=== PATIENT | male | born 1935 | race Caucasian/White ===

== ENCOUNTER → 2019-05-31 14:48 | Outpatient (CLI) | payer MEDICARE, OTHER, SELFPAY ==
--- NOTE | 2019-05-31 | DI.US.S_ITS ---
PROCEDURE: US RENAL COMPLETE INDICATIONS: CHRONIC KIDNEY DISEASE, STAGE 3 (MODERATE) TECHNIQUE: Real-time scanning was performed of the kidneys and bladder, with image documentation. COMPARISON: None. FINDINGS: Kidneys: Kidneys are normal in size. Right kidney measures 9.1 cm long; left kidney measures 8.6 cm long. Right renal cortical thickness is 1.2 cm; left renal cortical thickness is 1.3 cm. Renal cortical echotexture is normal. No hydronephrosis or nephrolithiasis. No suspicious solid mass lesions. Bladder: Pre-void bladder volume is 124 mL. Post-void residual is 23 mL. Pre-void images demonstrate no intraluminal masses or stones. On pre-void images, bilateral ureteral jets are noted with color Doppler interrogation. (Of note, ureteral jets may not be detectable in up to 25% of cases due to insufficient differences in specific gravity between ureteral and bladder urine). Prostate volume estimated at 54 cc. Miscellaneous: No free pelvic fluid. IMPRESSION: Normal sonographic appearance of the kidneys bilaterally. Dictated by: Hayden TEJADA Interpreted: Susi Ruvalcaba MD on 05/31/2019 at 16:46 Approved by: Susi Ruvalcaba M.D. on 06/01/2019 at 7:08
== END ==
PROVIDERS: Family Provider Physician Assistant Medical; PCP Physician Assistant Medical; Visit Provider Internal Medicine Nephrology
DX: N18.3 Chronic kidney disease, stage 3 (moderate) (principal)
CPT/HCPCS: 76770

== ENCOUNTER 2020-04-26 00:03 | Emergency (ER) | payer OTHER, MEDICARE, SELFPAY ==
--- NOTE | 2020-04-26 00:11 | ED_ITS ---
HPI - Abdominal Pain General Chief Complaint: Abdominal Pain Stated Complaint: constipated 3days Time Seen by Provider: 04/26/20 00:05 Source: patient Mode of arrival: Ambulatory Limitations: no limitations History of Present Illness HPI narrative: 84M former smoker presents with his and the chief complaint of lower abdominal discomfort and decreased BM for the past few days. His pain comes and goes without any provocation or palliation. He denies any fever chills nor nausea or vomiting. He denies any change in medications or diet. Is no difficulty with urination such as dysuria, frequency or urgency. MD complaint: abdominal pain Onset (ago): day(s) Pain Consistency: intermittent Location: diffuse Severity: moderate Quality: cramping Radiation: none Relieving factors: nothing Exacerbating factors: nothing Associated symptoms: denies other symptoms Related Data Previous Rx's Medication Instructions Recorded tamsulosin [Flomax] 0.4 mg PO DAILY #10 cap 04/26/20 Review of Systems Constitutional Constitutional: Denies chills, Denies fatigue, Denies fever(s), Denies frequent falls, Denies lethargy and Denies weakness Eyes Eyes: Denies change in vision, Denies eye discharge, Denies irritation and Denies loss of vision ENT Ears, Nose, Mouth, and Throat: Denies change in voice, Denies dizziness, Denies neck pain, Denies sore throat and Denies throat swelling Cardiovascular Cardiovascular: Denies chest pain, Denies irregular heart rhythm, Denies lightheadedness, Denies palpitations, Denies dyspnea, Denies dyspnea on exertion and Denies orthopnea Respiratory Respiratory: Denies cough, Denies dyspnea, Denies dyspnea on exertion and Denies wheezing Gastrointestinal Gastrointestinal: Reports abdominal pain, Denies change in bowel habits, Reports constipation, Denies diarrhea, Denies nausea and Denies vomiting Musculoskeletal Musculoskeletal: Denies neck pain and Denies numbness Integumentary/Breasts Skin/Breast: Denies pruritus, Denies erythema, Denies rash and Denies wounds Neurologic Neurologic: Denies behavioral changes, Denies confusion, Denies dizziness, Denies frequent falls, Denies loss of vision, Denies numbness and Denies weakness Psychiatric Psychiatric: Denies anxiety, Denies behavioral changes, Denies confusion, Denies depression, Denies homicidal ideation and Denies suicidal ideation Endocrine Endocrine: Denies fatigue, Denies flushing and Denies palpitations Hematologic/Lymphatic Hematologic/Lymphatic: Denies easy bruising Allergic/Immunologic Allergic/Immunologic: Denies urticaria, Denies throat swelling and Denies wheezing Exam Narrative Exam Narrative: GENERAL: [84] year old patient appears stated age. Well- nourished, well-developed patient, in mild distress. HEAD: Atraumatic. Normocephalic. EYES: Pupils equal round and reactive. Extraocular motions intact. No scleral icterus. No injection or drainage. ENT: Nose without bleeding, purulent drainage. Throat without erythema, tonsillar hypertrophy or exudate. Airway patent. NECK: Trachea midline. Non tender CARDIOVASCULAR: Regular rate and rhythm without murmurs, gallops, or rubs. RESPIRATORY: Clear to auscultation. Breath sounds equal bilaterally. No wheezes, rales, or rhonchi. GASTROINTESTINAL: Abdomen soft, non-tender, nondistended. EXTREMITIES: No edema or joint tenderness. BACK: Nontender without deformity or crepitance. No flank tenderness. NEURO: AOx3. SKIN: No rash or erythema of visible areas Initial Vital Signs Initial Vital Signs: Vital Signs Temperature 97.9 F 04/26/20 00:17 Pulse Rate 67 04/26/20 00:17 Respiratory Rate 18 04/26/20 00:17 Blood Pressure 165/76 H 04/26/20 00:17 Pulse Oximetry 98 04/26/20 00:17 Course Course Course Narrative: Patient urinating without difficulty but on multiple occasions has a measured postvoid residual of between 2 and 300 cc. Without any intervention the patient's initial presenting abdominal discomfort had completely resolved. He ambulates to the department without any difficulty. I did consult with Urology regarding their threshold for Santillan catheter in the setting of mild urinary retention. Dr. Lopez recommends initiating tamsulosin. Orders Ordered: ED Orders 04/26/20 00:14 XR acute abdomen series Stat Vital Signs Vital signs: Vital Signs - 8 hr 04/26/20 00:17 04/26/20 01:39 04/26/20 03:05 Temperature 97.9 F Pulse Rate 67 61 Respiratory Rate 18 22 21 Blood Pressure 165/76 H 167/72 H 161/76 H Pulse Oximetry 98 97 96 MDM - Abdominal Pain Lab Data Point of care testing: Urine Dip Bedside Urine Glucose Negative Bedside Urine Bilirubin - Negative Bedside Urine Ketone - Negative Urine Specific [place] 1.02 Bedside Urine Occult Blood - Negative Bedside Urine pH 6.0 Bedside Urine Protein - Negative Bedside Urine Urobilinogen - Negative Bedside Urine Nitrite - Negative Bedside Urine Leukocytes - Negative Esterase Discharge Plan Departure Patient Disposition: Home Clinical Impression: Constipation Qualifiers: Constipation type: unspecified constipation type Qualified Code(s): K59.00 - Constipation, unspecified Discharge Date/Time: 04/26/20 03:45 Instructions: DI for Constipation, DI for Urinary Retention in Men Activity Restrictions/Additional Instructions: *You have been diagnosed with [ abdominal pain due to constipation and mild urinary retention] *What to do: *Take over the counter medications as directed: 1. Metamucil - is a bulk forming laxative and adds fiber 2. Colace - softens your stool 3. Dulcolax suppository - stimulates your bowels *Follow up with your primary care provider in 2-3 days, call for appointment *Return to ER if you should have any new, worsening or concerning symptoms *Drink plenty of water and eat foods high in fiber *Stay as active as you can as this helps move your bowels as well Prescriptions: New tamsulosin [Flomax] 0.4 mg capsule 0.4 mg PO DAILY Qty: 10 RF: 0 Referrals: Bahman Lopez MD [Physician] - Emilie Bo PA-C [Primary Care Provider] -
--- NOTE | 2020-04-26 00:14 | DI.RAD.S_ITS ---
PROCEDURE: XR ACUTE ABDOMEN SERIES INDICATIONS: Abdominal pain, No Bowel movement TECHNIQUE: One view chest and two views of the abdomen were acquired. COMPARISON: None. FINDINGS: Surgical changes and devices: None. Chest: Lungs are clear. Heart size is normal. No pleural effusions. No pneumoperitoneum. Abdomen: Bowel gas pattern is nonobstructive. No suspicious calcifications. Visualized solid organ contours appear normal. Moderate fecal material seen throughout the colon. Bones: No suspicious bony lesions. IMPRESSION: Chest and abdomen without acute radiographic abnormalities. Moderate amount of fecal material seen throughout the colon possibly representing constipation. No significant discrepancy with the textiles sales representative radiology preliminary report. Dictated by: Navneet Landin M.D. on 04/26/2020 at 7:02 Approved by: Navneet Landin M.D. on 04/26/2020 at 7:03
[2020-04-26 00:17] VITALS: BP 165/76; PULSE 67; RESP 18; TEMP 36.6; O2SAT 98
[2020-04-26 01:39] VITALS: BP 167/72; RESP 22; O2SAT 97
[2020-04-26 03:05] VITALS: BP 161/76; PULSE 61; RESP 21; O2SAT 96
--- NOTE | 2020-04-26 04:13 | PC.NURSE ---
He denied any abdominal pain or nausea at 0100.
== END 2020-04-26 03:45 | disposition home or self-care (01) ==
PROVIDERS: Emergency Provider Emergency Medicine; Family Provider Physician Assistant Medical; PCP Physician Assistant Medical
DX: K59.00 Constipation, unspecified (principal); R10.30 Lower abdominal pain, unspecified
CPT/HCPCS: 51798; 74022; 81003; 99282; 99283

== ENCOUNTER 2021-01-06 18:33 | Emergency (ER) | payer OTHER, MEDICARE, SELFPAY ==
[2021-01-06] VITALS (12 sets, daily range): BP systolic 102–150; BP diastolic 54–95; PULSE 63–71; RESP 16–22; TEMP 37.3; O2SAT 95–98; BMI 25.8
--- NOTE | 2021-01-06 19:23 | DI.RAD.S_ITS ---
PROCEDURE: XR CHEST 1V INDICATIONS: chest pain TECHNIQUE: One view of the chest was acquired. COMPARISON: [facility], CR, XR ACUTE ABDOMEN SERIES, 04/26/2020, 0:46. FINDINGS: Surgical changes and devices: None. Lungs and pleura: Lungs are clear. No pleural effusions or pneumothorax. Mediastinum: Mediastinal contours appear normal. Heart size is normal. Bones and chest wall: No suspicious bony lesions. Overlying soft tissues appear unremarkable. IMPRESSION: 1. No acute cardiopulmonary disease. Dictated by: New Lares M.D. on 01/06/2021 at 20:14 Approved by: New Lares M.D. on 01/06/2021 at 20:15
[2021-01-06 19:49] LABS: INR 1.2 (0.9-1.3); Prothrombin Time 13.1 SECONDS (10.1-12.7)
[2021-01-06 19:52] LABS: Add Manual Diff / Slide Review NO; Basophils Absolute Auto 0 /uL (0-100); Basophils Percent Auto 0.2 % (0-2); Eosinophils Absolute Auto 200 /uL (0-450); Eosinophils Percent Auto 1.4 % (2-4); Hematocrit 34.1 % (41-53); Hemoglobin 11.2 g/dL (13.5-17.5); Lymphocytes Absolute Auto 2900 /uL (1100-4500); Lymphocytes Percent Auto 25.1 % (25-40); Mean Corpuscular HGB Conc 32.8 % (30-36); Mean Corpuscular Hemoglobin 28.9 PG (26-34); Mean Corpuscular Volume 88.1 fL (80-100); Monocytes Absolute Auto 900 /uL (0-900); Monocytes Percent Auto 7.7 % (3-14); Neutrophils Absolute Auto 7500 /uL (1500-7000); Neutrophils Percent Auto 65.6 % (50-75); PTT Partial Thromboplastin Tim 32 SECONDS (26.4-36.2); Platelet Count 189 X10^3/uL (150-400); Red Blood Cell Count 3.87 X10^6/uL (4.5-5.9); Red Cell Distribution Width 13.9 % (11.6-14.8); White Blood Cell Count 11.5 X10^3/uL (4.5-11.0)
[2021-01-06 19:54] LABS: Alanine Aminotransferase 5 IU/L (<50); Albumin 3.9 g/dL (3.5-5.0); Albumin Globulin Ratio 1.3 (1.0-2.8); Alkaline Phosphatase 58 U/L (38-126); Aspartate Aminotransferase 10 IU/L (17-59); BUN Creatinine Ratio 29.6 (6-22); Bilirubin Total 0.5 mg/dL (0.2-1.3); Blood Urea Nitrogen 50 mg/dL (9-20); Calcium 9.9 mg/dL (8.4-10.2); Carbon Dioxide 22 mmol/L (22-32); Chloride 106 mmol/L (98-107); Creatine Kinase 32 U/L (55-170); Estimated Glomerular Filt Rate 38.7 mL/min (>60); Glucose 120 mg/dL (80-110); HEMOLYSIS < 15 (0-50); Lipase 92 U/L (23-300); Magnesium 1.5 mg/dL (1.6-2.3); Sodium 137 mmol/L (137-145); Total Protein 6.9 g/dL (6.3-8.2)
[2021-01-06 19:57] LABS: Potassium 5.5 mmol/L (3.4-5.1)
[2021-01-06 20:05] LABS: Troponin I < 0.012 ng/mL (0.01-0.034)
[2021-01-06] MEDS: SODIUM CHLORIDE 0.9% 1,000 ML 1000 ML IV (22:40)
[2021-01-06 22:49] LABS: Bacteria Urine None Seen; RBC Urine None Seen (0-5/HPF)
[2021-01-06 22:51] LABS: Appearance Urine UA CLEAR; Bilirubin Urine UA NEGATIVE (NEGATIVE); Color Urine UA YELLOW; Glucose Urine UA NEGATIVE (Negative); Ketones Urine UA NEGATIVE (NEGATIVE); Leukocyte Esterase Urine UA NEGATIVE (NEGATIVE); Nitrite Urine UA NEGATIVE (Negative); Occult Blood Urine UA NEGATIVE (Negative); Protein Urine UA NEGATIVE (Negative); Specific Gravity Urine UA 1.015 (1.000-1.035); Urobilinogen Urine UA 0.2 E.U./dL (0.2)
--- NOTE | 2021-01-06 22:59 | ED.WEAKNESS ---
HPI - Weakness General Chief complaint: Weakness Stated complaint: states BP is tanking Time Seen by Provider: 01/06/21 20:21 Source: patient Mode of arrival: Ambulatory Limitations: no limitations History of Present Illness HPI Narrative: This is an 85-year-old male comes emergency department for concern for low blood pressure. Patient has had multiple falls over the last week. Patient's 1st fall was on the 16. He states he probably got up from the table to quickly lost his balance. Was week a couple days later as well and had a 2nd fall. Patient's states she did not seem like he looked well this evening sitting in his chair she checked his blood pressure was 80 systolic, she gave him some food and some water and recheck in our later continued to be in 80s and continued to be low over the next several hours. Patient family ultimately came. He has felt weak, tired for the past 7-10 days. No headaches. He has had a stiff neck for about 6 months and had intermittent neck discomfort in the bleeding has arthritis. No chest pain, no shortness of breath, no nausea or vomiting. No abdominal pain. Patient had a large bowel movement yesterday with diarrhea for about 6 hours. He has had some chronic urinary frequency for about 2 months. He is on a daily water pill. He has not had any new swelling. He takes an aspirin daily, he has diabetes, Parkinson's and chronic kidney disease they do not know his regular creatinine. No prior surgeries. No allergies. No tobacco, rare alcohol, no illicit. He normally uses a walker and his primary care is Dr. Bo and [facility]. Related Data Previous Rx's Medication Instructions Recorded tamsulosin 0.4 mg capsule (Flomax) 0.4 mg PO DAILY #10 cap 04/26/20 Allergies Allergy/AdvReac Type Severity Reaction Status Date / Time No Known Drug Allergies Allergy Verified 01/06/21 18:45 Review of Systems Review of Systems ROS Unobtainable: All systems reviewed & are unremarkable except as noted in HPI and below Patient History Social History Smoking Status: Never smoker Smoking Status: Never smoker alcohol intake frequency: holidays/special occasions only Substance Use Type: does not use Exam Narrative Exam Narrative: GEN: well nourished, well appearing male, alert and oriented x 3, patient appears to be in mild distress. HEENT: Atraumatic, pupils are equal round reactive to light, extraocular movements are intact, nares are clear. Throat is clear without any exudates, erythema, tonsillar enlargement or uvular deviation, neck is nontender. Patient has full range of motion. HEART: Regular rate and rhythm without murmur, clicks, rubs. Pulses are equal in upper and lower extremities LUNGS:Lungs clear to auscultation, no wheezes, rales, crackles, chest moves symmetrically ABD:bowel sounds normal, soft, non-tender, no guarding, rebound, rigidity, no masses noted, no hepatosplenomegaly :No CVA tenderness MSCL: Non-tender, no muscle atrophy, muscles strength 5/5 upper and lower extremities, full range of motion NEURO:CN 2-12 intact, sensation normal Initial Vital Signs Initial Vital Signs: Vital Signs Temperature 99.1 F 01/06/21 18:39 Pulse Rate 69 01/06/21 18:39 Respiratory Rate 18 01/06/21 18:39 Blood Pressure 102/54 L 01/06/21 18:39 Pulse Oximetry 97 01/06/21 18:39 Course Orders Ordered: Discontinued Medications Acetaminophen (Acetaminophen 325 Mg Tablet) 650 mg PO NOW ONE Stop: 01/06/21 23:16 Last Admin: 01/06/21 23:24 Dose: 650 mg Documented by: NEIL Sodium Chloride (Normal Saline 0.9%) 1,000 mls @ 1,000 mls/hr IV BOLUS ONE Stop: 01/06/21 23:35 Last Infusion: 01/07/21 00:34 Dose: 0 mls/hr Documented by: Admin: 01/06/21 22:40 Dose: 1,000 mls/hr Documented by: NEIL Vital Signs Vital signs: Vital Signs - 8 hr 01/06/21 18:39 01/06/21 19:55 01/06/21 20:23 Temperature 99.1 F Pulse Rate 69 67 Respiratory Rate 18 16 Blood Pressure 102/54 L Blood Pressure [Orthostatic Lying] 150/66 H Blood Pressure [Orthostatic Sitting] 142/60 H Blood Pressure [Orthostatic Standing] 125/56 L Pulse Oximetry 97 97 01/06/21 20:30 Temperature Pulse Rate 65 Respiratory Rate 18 Blood Pressure Blood Pressure [Orthostatic Lying] Blood Pressure [Orthostatic Sitting] Blood Pressure [Orthostatic Standing] Pulse Oximetry 97 MDM - Weakness Lab Data Result diagrams: 01/06/21 19:20 01/07/21 00:20 Labs: Lab Results 01/06/21 01/06/21 01/06/21 Range/Units 19:20 19:20 19:20 WBC 11.5 H (4.5-11.0) X10^3/uL RBC 3.87 L (4.5-5.9) X10^6/uL Hgb 11.2 L (13.5-17.5) g/dL Hct 34.1 L (41-53) % MCV 88.1 (80-100) fL MCH 28.9 (26-34) PG MCHC 32.8 (30-36) % RDW 13.9 (11.6-14.8) % Plt Count 189 (150-400) X10^3/uL Neut % (Auto) 65.6 (50-75) % Lymph % (Auto) 25.1 (25-40) % Dickenson % (Auto) 7.7 (3-14) % Eos % (Auto) 1.4 L (2-4) % Baso % (Auto) 0.2 (0-2) % Neut # (Auto) 7500 H (8514-9989) /uL Lymph # (Auto) 2900 (7169-5293) /uL Dickenson # (Auto) 900 (0-900) /uL Eos # (Auto) 200 (0-450) /uL Baso # (Auto) 0 (0-100) /uL PT 13.1 H (10.1-12.7) SECONDS INR 1.2 (0.9-1.3) APTT 32 (26.4-36.2) SECONDS Sodium 137 (137-145) mmol/L Potassium 5.5 H (3.4-5.1) mmol/L Chloride 106 (98-107) mmol/L Carbon Dioxide 22 (22-32) mmol/L BUN 50 H (9-20) mg/dL Creatinine 1.69 H (0.66-1.25) mg/dL Estimated GFR 38.7 L (>60) mL/min BUN/Creatinine Ratio 29.6 H (6-22) Glucose 120 H (80-110) mg/dL Calcium 9.9 (8.4-10.2) mg/dL Magnesium 1.5 L (1.6-2.3) mg/dL Total Bilirubin 0.5 (0.2-1.3) mg/dL AST 10 L (17-59) IU/L ALT 5 (<50) IU/L Alkaline Phosphatase 58 (38-126) U/L Total Creatine Kinase 32 L (55-170) U/L CK-MB (CK-2) TNP CK-MB (CK-2) Rel Index TNP Troponin I < 0.012 (0.01-0.034) ng/mL Total Protein 6.9 (6.3-8.2) g/dL Albumin 3.9 (3.5-5.0) g/dL Globulin 3.0 (1.7-4.1) g/dL Albumin/Globulin Ratio 1.3 (1.0-2.8) Lipase 92 (23-300) U/L Urine Color Urine Appearance Urine pH (4.5-8.0) Ur Specific [place] (1.000-1.035) Urine Protein (Negative) Urine Glucose (UA) (Negative) g/dL Urine Ketones (NEGATIVE) Urine Occult Blood (Negative) Urine Nitrate (Negative) Urine Bilirubin (NEGATIVE) Urine Urobilinogen (0.2) E.U./dL Ur Leukocyte Esterase (NEGATIVE) Urine RBC (0-5/HPF) Urine WBC (0-5/HPF) Urine Bacteria (None) Ur Culture Indicated? 01/06/21 01/07/21 Range/Units 22:30 00:20 WBC (4.5-11.0) X10^3/uL RBC (4.5-5.9) X10^6/uL Hgb (13.5-17.5) g/dL Hct (41-53) % MCV (80-100) fL MCH (26-34) PG MCHC (30-36) % RDW (11.6-14.8) % Plt Count (150-400) X10^3/uL Neut % (Auto) (50-75) % Lymph % (Auto) (25-40) % Dickenson % (Auto) (3-14) % Eos % (Auto) (2-4) % Baso % (Auto) (0-2) % Neut # (Auto) (7934-1162) /uL Lymph # (Auto) (1135-4140) /uL [place] # (Auto) (0-900) /uL Eos # (Auto) (0-450) /uL Baso # (Auto) (0-100) /uL PT (10.1-12.7) SECONDS INR (0.9-1.3) APTT (26.4-36.2) SECONDS Sodium 136 L (137-145) mmol/L Potassium 5.1 (3.4-5.1) mmol/L Chloride 109 H (98-107) mmol/L Carbon Dioxide 20 L (22-32) mmol/L BUN 50 H (9-20) mg/dL Creatinine 1.34 H (0.66-1.25) mg/dL Estimated GFR 50.5 L (>60) mL/min BUN/Creatinine Ratio 37.3 H (6-22) Glucose 114 H (80-110) mg/dL Calcium 9.1 (8.4-10.2) mg/dL Magnesium (1.6-2.3) mg/dL Total Bilirubin (0.2-1.3) mg/dL AST (17-59) IU/L ALT (<50) IU/L Alkaline Phosphatase (38-126) U/L Total Creatine Kinase (55-170) U/L CK-MB (CK-2) CK-MB (CK-2) Rel Index Troponin I (0.01-0.034) ng/mL Total Protein (6.3-8.2) g/dL Albumin (3.5-5.0) g/dL Globulin (1.7-4.1) g/dL Albumin/Globulin Ratio (1.0-2.8) Lipase (23-300) U/L Urine Color Yellow Urine Appearance Clear Urine pH 5.0 (4.5-8.0) Ur Specific [place] 1.015 (1.000-1.035) Urine Protein Negative (Negative) Urine Glucose (UA) Negative (Negative) g/dL Urine Ketones Negative (NEGATIVE) Urine Occult Blood Negative (Negative) Urine Nitrate Negative (Negative) Urine Bilirubin Negative (NEGATIVE) Urine Urobilinogen 0.2 (0.2) E.U./dL Ur Leukocyte Esterase Negative (NEGATIVE) Urine RBC None seen (0-5/HPF) Urine WBC 0-1/hpf (0-5/HPF) Urine Bacteria None seen (None) Ur Culture Indicated? Cult not indicated Imaging Data CT scan - head: Radiologist Impression: Chronic involutional volume loss. No signs of acute trauma. 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 Uncovertebral joint and facet hypertrophy. Advance bilateral foraminal stenosis at C3-4 with there is also disc space collapse. C4-C5 has advanced foraminal stenosis on the right and C5-6 has advanced bilateral foraminal stenosis. Chest x-ray: Radiologist Impression: Bishop Hanna 85 M [address] [id number] ReportSigned Patient: Bishop HannaMR#: [id number]: 5Acct:[id number]/Sex: 85 / MDate of Service: 01/06/21Loc: EDAccession Number: [id number] Procedure: XR chest 1V Ordering Provider: Stephanie Vick D.O. PROCEDURE: XR CHEST 1V INDICATIONS: chest pain TECHNIQUE: One view of the chest was acquired. COMPARISON: [facility], CR, XR ACUTE ABDOMEN SERIES, 04/26/2020, 0:46. FINDINGS: Surgical changes and devices: None. Lungs and pleura: Lungs are clear. No pleural effusions or pneumothorax. Mediastinum: Mediastinal contours appear normal. Heart size is normal. Bones and chest wall: No suspicious bony lesions. Overlying soft tissues appear unremarkable. IMPRESSION: 1. No acute cardiopulmonary disease. Dictated by: New Lares M.D. on 01/06/2021 at 20:14 Approved by: New Lares M.D. on 01/06/2021 at 20:15 ECG Data Interpretation: Sinus rhythm rate of 60 4 NM 154 QRS is 74 and QTC of 373. Nonspecific change. No elevation depression. Patient has no priors for comparison. MDM Narrative Medical decision making narrative: Male comes emergency department low blood pressure at home. Patient did respond well to fluids. He does have a history of chronic kidney disease. Repeat BMP was obtained and his potassium improved after fluids. His blood pressure is also improved somewhat. Patient head CT showed no acute changes. Patient would like to return home. Discharge Plan Departure Patient Disposition: Home Clinical Impression: Acute on chronic kidney failure, Acute hyperkalemia, Dehydration Instructions: DI for Hyperkalemia Activity Restrictions/Additional Instructions: I suspect you are quite dehydrated your labs today showed a elevated creatinine it appears you have a history of chronic kidney disease and I do not have any comparison but on repeat BMP after receiving 1 L fluids your creatinine has improved, your potassium has resolved to a normal level and your BUN has also improved which is quite elevated. Your blood pressure has been more appropriate here in the department. I would recommend continuing to hydrate aggressively. Follow-up with your physician at your visit tomorrow. Labs have been included for you to take to your visit. They can compare with your regular labs. A CT scan head and neck do not show any acute changes but you do have quite a bit of chronic changes that are likely causing her chronic neck issues. Please return for worsening symptoms, recurrent lightheadedness or passing out, new chest pain, shortness of breath, persistent vomiting, decrease in urine output, severe headaches, new numbness tingling or weakness or other new or concerning symptoms. Prescriptions: No Action tamsulosin [Flomax] 0.4 mg capsule 0.4 mg PO DAILY Qty: 10 RF: 0 Referrals: Emilie Bo PA-C [Primary Care Provider] -
[2021-01-06 23:05] LABS: Culture Indicated Urine Cult Not Indicated; WBC Urine 0-1/HPF (0-5/HPF)
--- NOTE | 2021-01-06 23:15 | DI.CT.S_ITS ---
PROCEDURE: CT CERVICAL SPINE WO CON INDICATIONS: multiple falls, weakness, low bp TECHNIQUE: Noncontrast 3 mm thick sections acquired from the skull base to the T4 level. Sagittal and coronal reformats were then constructed. For radiation dose reduction, the following was used: automated exposure control, adjustment of mA and/or kV according to patient size. COMPARISON: None. FINDINGS: Image quality: Excellent. Bones: No fractures or dislocations. Visualized superior ribs are intact. Spine degenerative disc disease and facet arthropathy. Soft tissues: Prevertebral soft tissues are normal in thickness. No paravertebral hematomas. No apical pneumothoraces. 1.4 centimeter right thyroid nodule and 0.8 centimeter left thyroid nodule. Consider dedicated thyroid ultrasound for further evaluation if clinically indicated. IMPRESSION: No fracture. No acute osseous lesion. If symptoms and/or clinical suspicion for pathology persists, evaluation with MRI should be considered for further assessment. Dictated by: Alice Denson MD, PhD on 01/07/2021 at 7:51 Approved by: Alice Denson MD, PhD on 01/07/2021 at 7:54
--- NOTE | 2021-01-06 23:15 | DI.CT.S_ITS ---
PROCEDURE: CT HEAD/BRAIN WO CON INDICATIONS: multiple falls, weakness, low bp TECHNIQUE: Noncontrast 4.5 mm thick angled axial sections acquired from the foramen magnum to the vertex, with coronal and sagittal reformats. For radiation dose reduction, the following was used: automated exposure control, adjustment of mA and/or kV according to patient size. COMPARISON: None. FINDINGS: Image quality: Excellent. CSF spaces: Basal cisterns are patent. No extra-axial fluid collections. The ventricles are symmetric in size and shape. Brain: No intracranial bleeds or masses. There is cerebral volume loss for age, with resultant ventricular and sulcal prominence. There are periventricular and deep white matter chronic small vessel ischemic changes. There is intracranial internal carotid artery atherosclerosis. Skull and face: Calvarium and visualized facial bones appear intact, without suspicious lesions. Sinuses: Visualized sinuses and mastoids are clear. IMPRESSION: No acute intracranial disease process. Dictated by: Alice Denson MD, PhD on 01/07/2021 at 7:48 Approved by: Alice Denson MD, PhD on 01/07/2021 at 7:50
[2021-01-06] MEDS: ACETAMINOPHEN 325 MG TABLET 650 MG PO (23:24)
[2021-01-07] VITALS: BP 116/56; PULSE 61; RESP 21
[2021-01-07 00:30] VITALS: BP 98/50; PULSE 61; RESP 21
[2021-01-07 00:36] LABS: BUN Creatinine Ratio 37.3 (6-22); Blood Urea Nitrogen 50 mg/dL (9-20); Calcium 9.1 mg/dL (8.4-10.2); Carbon Dioxide 20 mmol/L (22-32); Chloride 109 mmol/L (98-107); Estimated Glomerular Filt Rate 50.5 mL/min (>60); Glucose 114 mg/dL (80-110); HEMOLYSIS < 15 (0-50); Potassium 5.1 mmol/L (3.4-5.1); Sodium 136 mmol/L (137-145)
[2021-01-07 00:39] VITALS: BP 110/53; PULSE 62; RESP 22
[2021-01-07 01:00] VITALS: BP 122/60; PULSE 62; RESP 23
== END 2021-01-07 01:15 | disposition home or self-care (01) ==
PROVIDERS: Emergency Provider Emergency Medicine; Family Provider Physician Assistant Medical; PCP Physician Assistant Medical
DX: N17.9 Acute kidney failure, unspecified (principal); N18.9 Chronic kidney disease, unspecified; E87.5 Hyperkalemia; E86.0 Dehydration; R03.1 Nonspecific low blood-pressure reading; Z91.81 History of falling
CPT/HCPCS: 36415; 70450; 71045; 72125; 80048; 80053; 81001; 82550; 83690; 83735; 84484; 85025; 85610; 85730; 93005; 93010; 96360; 96361; 99284

== ENCOUNTER 2021-09-09 13:49 | Emergency (ER) | payer MEDICARE, OTHER, SELFPAY ==
[2021-09-09 13:52] VITALS: BP 156/66; PULSE 63; RESP 15; TEMP 36.6; O2SAT 98; BMI 27.1
--- NOTE | 2021-09-09 13:56 | DI.CT.S_ITS ---
PROCEDURE: CT CERVICAL SPINE WO CON INDICATIONS: fall with right upper arm pain and neck pain TECHNIQUE: Noncontrast 3 mm thick sections acquired from the skull base to the T4 level. Sagittal and coronal reformats were then constructed. For radiation dose reduction, the following was used: automated exposure control, adjustment of mA and/or kV according to patient size. COMPARISON: [facility], CR, XR SHOULDER RT MIN 2V, 09/09/2021, 13:55. [facility], CT, CT CERVICAL SPINE WO CON, 01/06/2021, 23:19. FINDINGS: Image quality: This examination is somewhat limited by quantum mottle artifact. Bones: No fractures or dislocations. Visualized superior ribs are intact. Degenerative changes are seen, with moderate to severe disc space narrowing at C3-C4, C5-C6, and C6-C7. Milder degenerative changes are seen elsewhere. Minimal retrolisthesis is seen at C3-C4, C5-C6, and C6-C7. Soft tissues: Prevertebral soft tissues are normal in thickness. No paravertebral hematomas. No apical pneumothoraces. IMPRESSION: No acute fractures are detected. Relatively prominent cervical spine degenerative changes are seen, which are similar to the prior CT. Dictated by: Eliot Beckham M.D. on 09/09/2021 at 13:25 Approved by: Eliot Beckham M.D. on 09/09/2021 at 13:26
--- NOTE | 2021-09-09 13:57 | DI.RAD.S_ITS ---
PROCEDURE: XR SHOULDER RT MIN 2V INDICATIONS: fall TECHNIQUE: 3 views of the shoulder were acquired. COMPARISON: [facility], CR, XR CHEST 1V, 01/06/2021, 19:28. [facility], CT, CT CERVICAL SPINE WO CON, 09/09/2021, 14:11. FINDINGS: Bones: No fractures or dislocations. No suspicious bony lesions. Visualized ribs appear intact. Degenerative changes are seen, including mild subacromial spurring. Soft tissues: No suspicious soft tissue calcifications. The visualized lung demonstrates an unremarkable appearance. IMPRESSION: Degenerative changes, without an acute abnormality seen on these images. If there is point tenderness (or other clinical suspicion for a fracture not seen on these images) then a dedicated CT could be considered for further evaluation, if clinically appropriate. Dictated by: Eliot Beckham M.D. on 09/09/2021 at 13:19 Approved by: Eliot Beckham M.D. on 09/09/2021 at 13:19
[2021-09-09 14:00] VITALS: BP 136/61; PULSE 64; RESP 20; O2SAT 96
--- NOTE | 2021-09-09 14:28 | ED_ITS ---
HPI - Fall <PHIL Corona - Last Filed: 09/09/21 16:12> General Chief Complaint: Fall Stated Complaint: GLF shoulder injury,+orthostatics per medics Time Seen by Provider: 09/09/21 14:28 Source: patient and EMS Mode of arrival: EMS History of Present Illness HPI Narrative: 85-year-old male with history of Parkinson's disease presents to the emergency department today after a ground level fall. Patient states he was getting up from his chair and his toe caught a blanket and he tripped falling forward. He denies any loss of consciousness, he denies hitting his head but complains of left shoulder and left neck pain. Patient has generalized weakness and balance issues due to his Parkinson's and his requests no mind-altering medications be given as this will be an increase in his fall risk. Patient denies any headache, nausea, vomiting, neck pain or other injury. Related Data Previous Rx's Medication Instructions Recorded tamsulosin 0.4 mg capsule (Flomax) 0.4 mg PO DAILY #10 cap 04/26/20 diclofenac sodium 1 % topical gel 2 g TOPICAL QID PRN #100 g 09/09/21 (Voltaren Arthritis Pain) lidocaine 5 % topical patch 1 patch TOPICAL DAILY PRN #15 ea 09/09/21 Allergies Allergy/AdvReac Type Severity Reaction Status Date / Time No Known Drug Allergies Allergy Verified 09/09/21 13:52 Review of Systems <PHIL Corona - Last Filed: 09/09/21 16:12> Review of Systems Narrative: General: denies fever, chills, malaise, sweats, fatigue Head/Neck: denies headache, neck pain, dizziness Eyes: denies visual changes, eye pain Cardio: denies chest pain, palpitations, edema Respiratory: denies dyspnea, cough, orthopnea GI: denies abdominal pain, nausea, vomiting, or diarrhea : denies dysuria, hematuria, urinary retention, frequency or incontinence MSK: denies joint pain, muscle weakness, endorses left shoulder pain with movement, primarily abduction Skin: denies rash, itching, skin lesions or other Neuro: denies numbness, tingling Patient History <PHIL Corona - Last Filed: 09/09/21 16:12> Social History Smoking Status: Never smoker Smoking Status: Never smoker alcohol intake frequency: holidays/special occasions only Substance Use Type: does not use Exam <PHIL Corona - Last Filed: 09/09/21 16:12> Narrative Exam Narrative: Independently reviewed vitals signs and nursing notes. General: cooperative, comfortable, in no acute distress, well developed and well groomed Head: atraumatic, symmetrical facial expressions Neck: supple, atraumatic, without lymphadenopathy. Eyes: pupils equal round and reactive, EOMI, conjunctiva normal Nose: nares patent, no rhinorrhea Mouth/Throat: uvula midline, moist mucus membranes Cardiovascular: regular rate and rhythm, no peripheral edema, warm extremities Respiratory: normal effort, able to speak in complete sentences, no audible wheezing, stridor, or rales. No retractions or tachypnea. GI: abdomen soft, nontender to palpation, nondistended, no masses, no exquisite tenderness with exam, without guarding or rebound. MSK: moves all extremities, ambulatory w/steady gait, neurovascularly intact, no weakness, tremors are present muscle spasticity is visible, left shoulder pain with abduction and flexion. Skin: brisk capillary refill, no rash, no erythema Neuro: normal speech and cognition, A&O x3, normal tone Psych: mental status is grossly normal, congruent mood, normal affect, pleasant and cooperative Initial Vital Signs Initial Vital Signs: Vital Signs Temperature 97.9 F 09/09/21 13:52 Pulse Rate 63 09/09/21 13:52 Respiratory Rate 15 09/09/21 13:52 Blood Pressure 156/66 H 09/09/21 13:52 Pulse Oximetry 98 09/09/21 13:52 <Jose Andrew DO - Last Filed: 09/09/21 16:19> Initial Vital Signs Initial Vital Signs: Vital Signs Temperature 97.9 F 09/09/21 13:52 Pulse Rate 63 09/09/21 13:52 Respiratory Rate 15 09/09/21 13:52 Blood Pressure 156/66 H 09/09/21 13:52 Pulse Oximetry 98 09/09/21 13:52 Course <PHIL Corona - Last Filed: 09/09/21 16:12> Orders Ordered: ED Orders 09/09/21 13:56 CT cervical spine wo con Stat 09/09/21 13:57 XR shoulder RT min 2V Stat Discontinued Medications Acetaminophen (Acetaminophen 325 Mg Tablet) 975 mg PO NOW ONE Stop: 09/09/21 14:41 Last Admin: 09/09/21 14:56 Dose: 975 mg Documented by: KATIEETERSON Lidocaine (Lidocaine Patch 1 Each Adh..Patch) 1 each TOP NOW ONE Stop: 09/09/21 14:41 Last Admin: 09/09/21 14:56 Dose: 1 each Documented by: KPETERSON Vital Signs Vital signs: Vital Signs - 8 hr 09/09/21 13:52 09/09/21 14:00 Temperature 97.9 F Pulse Rate 63 64 Respiratory Rate 15 20 Blood Pressure 156/66 H 136/61 Pulse Oximetry 98 96 <Jose Andrew DO - Last Filed: 09/09/21 16:19> Orders Ordered: ED Orders 09/09/21 13:56 CT cervical spine wo con Stat 09/09/21 13:57 XR shoulder RT min 2V Stat Discontinued Medications Acetaminophen (Acetaminophen 325 Mg Tablet) 975 mg PO NOW ONE Stop: 09/09/21 14:41 Last Admin: 09/09/21 14:56 Dose: 975 mg Documented by: KATIEETERSON Lidocaine (Lidocaine Patch 1 Each Adh..Patch) 1 each TOP NOW ONE Stop: 09/09/21 14:41 Last Admin: 09/09/21 14:56 Dose: 1 each Documented by: KPETERSON Vital Signs Vital signs: Vital Signs - 8 hr 09/09/21 13:52 09/09/21 14:00 Temperature 97.9 F Pulse Rate 63 64 Respiratory Rate 15 20 Blood Pressure 156/66 H 136/61 Pulse Oximetry 98 96 MDM - Fall <PHIL Corona - Last Filed: 09/09/21 16:12> Imaging Data Extremity x-ray #1: Radiologist's Impression: PROCEDURE:? XR SHOULDER RT MIN 2V ? INDICATIONS:? fall ? TECHNIQUE:? 3 views of the shoulder were acquired.? ? COMPARISON:? [facility], CR, XR CHEST 1V, 01/06/2021, 19:28.? [facility], CT, CT CERVICAL SPINE WO CON, 09/09/2021, 14:11. ? FINDINGS:? ? Bones:? No fractures or dislocations.? No suspicious bony lesions.? Visualized ribs appear intact.? Degenerative changes are seen, including mild subacromial spu rring. ? Soft tissues:? No suspicious soft tissue calcifications.? The visualized lung demonstrates an unremarkable appearance. ? ? IMPRESSION:? Degenerative changes, without an acute abnormality seen on these images. ? If there is point tenderness (or other clinical suspicion for a fracture not seen on these images) then a dedicated CT could be considered for further evaluation, if clinically appropriate. ? ? Dictated by: Eliot Beckham M.D. on 09/09/2021 at 13:19 ? ? Approved by: Eliot Beckham M.D. on 09/09/2021 at 13:19 ? CT - cervical spine: Radiologist's Impression: PROCEDURE:? CT CERVICAL SPINE WO CON ? INDICATIONS:? fall with right upper arm pain and neck pain ? TECHNIQUE:? Noncontrast 3 mm thick sections acquired from the skull base to the T4 level.? Sagittal and coronal reformats were then constructed.? For radiation dose reduction, the following was used:? automated exposure control, adjustment of mA and/or kV according to patient size.? ? COMPARISON:? [facility], CR, XR SHOULDER RT MIN 2V, 09/09/2021, 13:55.? [facility], CT, CT CERVICAL SPINE WO CON, 01/06/2021, 23:19. ? FINDINGS:? Image quality:? This examination is somewhat limited by quantum mottle artifact.? ? Bones:? No fractures or dislocations.? Visualized superior ribs are intact.? ? Degenerative changes are seen, with moderate to severe disc space narrowing at C3-C4, C5-C6, and C6-C7.? Milder degenerative changes are seen elsewhere.? Minimal retrolisthesis is seen at C3-C4, C5-C6, and C6-C7.? ? Soft tissues:? Prevertebral soft tissues are normal in thickness.? No paravertebral hematomas.? No apical pneumothoraces.? ? ? IMPRESSION:? No acute fractures are detected. ? Relatively prominent cervical spine degenerative changes are seen, which are similar to the prior CT. ? ? ? Dictated by: Eliot Beckham M.D. on 09/09/2021 at 13:25 ? ? Approved by: Eliot Beckham M.D. on 09/09/2021 at 13:26 ? MDM Narrative Medical decision making narrative: 85-year-old male history of Parkinson's disease presents to the emergency department by EMS with a ground level fall after tripping on a blanket and falling forward. Patient complains of left shoulder pain from catching himself with his fall, primarily with abduction and flexion of his left shoulder. X-ray did not show any acute fracture osseous abnormality, CT cervical spine did not show any acute fractures, patient had tenderness over bilateral trapezius muscl es. This is most likely a neck sprain and a left shoulder sprain. Patient was fitted in a sling left, he has a walker and a cane at home to help him ambulate. He was given Tylenol, lidocaine patch in the emergency department with some improvement in his pain. He was instructed to follow-up with his primary care provider if he has ongoing pain beyond 1 week. We given a prescription for diclofenac topical gel and lidocaine patches. Patient is appropriate and amenable to discharge home. Vital signs are stable on repeat examination is unremarkable. Patient has been informed of results. Patient has been given strict return to ER precautions for any new or worsening symptoms. Patient understands to follow up closely with outpatient providers as instructed. Patient understands plan and agrees to discharge home. All questions and concerns answered at this time. Discharge Plan Departure Patient Disposition: Home Clinical Impression: Fall from ground level Sprain of left shoulder Qualifiers: Encounter type: initial encounter Shoulder sprain type: unspecified sprain Qualified Code(s): S43.402A - Unspecified sprain of left shoulder joint, initial encounter Acute neck sprain Qualifiers: Encounter type: initial encounter Qualified Code(s): S13.9XXA - Sprain of joints and ligaments of unspecified parts of neck, initial encounter Instructions: Shoulder Sprain, How to Prevent Falls, DI for Neck Sprain Activity Restrictions/Additional Instructions: *You have been diagnosed with a ground level fall without any fracture. Please be extra careful so that you do not have any falls. Please take Tylenol as needed for your pain, use a heat pack on your shoulders, apply this gel or lidocaine patches as needed for the pain. Please wear sling as needed to help support your left shoulder. Please follow-up with her primary care provider if this continues to hurt for outpatient imaging or physical therapy. Thank you for trusting us with your care, I hope that he starts feeling better soon. *What to do: *Please continue to take your regular medications as directed. [x ] New medication prescriptions sent to your pharmacy: [[facility] pharmacy] [ ] New medication written as a paper prescription [ ] No new medications given *Please follow up with your primary care provider in 2-3 days, call for an appointment. Let them know you were seen in the Emergency Department and that we asked that you be seen for follow-up. We will electronically transmit a record of today's note if your PCP is in our system *If you do not have a primary care provider please contact [phone] to establish care with one of the [facility] primary care providers. *Return to Emergency Department if you should have any new, worsening or concerning symptoms, such as [fever greater than 101F, chills, worsening pain, persistent vomiting or other bothersome symptoms] Prescriptions: New diclofenac sodium [Voltaren Arthritis Pain] 1 % gel 2 g topical QID PRN (Reason: shoulder pain) Qty: 100 0RF Rx Instructions: apply to single elbow, wrist or hand; for hand includes palm/fingers/back of hand lidocaine 5 % adhesive patch,medicated 1 patch topical DAILY PRN (Reason: shoulder pain) Qty: 15 0RF Rx Instructions: leave on most painful area for up to 12 hrs No Action tamsulosin [Flomax] 0.4 mg capsule 0.4 mg PO DAILY Qty: 10 0RF Referrals: Emilie Bo PA-C [Primary Care Provider] - <Jose Andrew DO - Last Filed: 09/09/21 16:19> Cosign ED Attending Cosolgaature Attestation: Dr Andrew Co-Sign Statement: I was available for consultation during this patient's emergency department visit. This chart is signed by myself for administrative purposes only. I did not have direct contact with this patient during this visit. They were seen independently by the APC.
[2021-09-09] MEDS: ACETAMINOPHEN 325 MG TABLET 975 MG PO (14:56)
[2021-09-09] MEDS: LIDOCAINE PATCH 1 EACH ADH..PATCH TOP (14:56)
[2021-09-09 14:59] VITALS: PULSE 62; O2SAT 98
[2021-09-09 15:00] VITALS: PULSE 61; O2SAT 97
[2021-09-09 15:30] VITALS: BP 148/67; PULSE 59; O2SAT 97
== END 2021-09-09 16:00 | disposition home or self-care (01) ==
PROVIDERS: Emergency Provider Nurse Practitioner Critical Care Medicine; Family Provider Physician Assistant Medical; PCP Physician Assistant Medical
DX: S43.402A Unspecified sprain of left shoulder joint, initial encounter (principal); S13.9XXA Sprain of joints and ligaments of unspecified parts of neck, initial encounter; M54.2 Cervicalgia; W18.09XA Striking against other object with subsequent fall, initial encounter; Y93.89 Activity, other specified
CPT/HCPCS: 72125; 73030; 99284

== ENCOUNTER 2022-02-15 12:53 | Emergency (ER) | payer MEDICARE, OTHER, SELFPAY ==
[2022-02-15 13:01] VITALS: BP 125/84; PULSE 64; RESP 18; TEMP 36.8; O2SAT 98; BMI 28.2
--- NOTE | 2022-02-15 13:17 | DI.RAD.S_ITS ---
PROCEDURE: XR HIP W PEL IF DONE LT 2V INDICATIONS: GLF TECHNIQUE: AP pelvis with lateral view(s) of the left hip(s). COMPARISON: None. FINDINGS: Bones: No fractures or dislocations. Pelvic ring appears intact. No suspicious bony lesions. Moderate bilateral hip DJD. Soft tissues: The visualized bowel gas pattern is normal. No suspicious soft tissue calcifications. IMPRESSION: No fracture identified. If concern for occult fracture consider CT bony pelvis. Dictated by: Hang Goodman M.D. on 02/15/2022 at 14:16 Approved by: Hang Goodman M.D. on 02/15/2022 at 14:17
--- NOTE | 2022-02-15 13:17 | DI.RAD.S_ITS ---
PROCEDURE: XR ELBOW LT MIN 3V INDICATIONS: GLF TECHNIQUE: 3 views of the elbow were acquired. COMPARISON: None. FINDINGS: Bones: No fractures or dislocations. No suspicious bony lesions. Soft tissues: No elbow joint effusion. No suspicious soft tissue calcifications. IMPRESSION: No acute abnormality of the left elbow Dictated by: Zuhair Bryson M.D. on 02/15/2022 at 14:38 Approved by: Zuhair Bryson M.D. on 02/15/2022 at 14:39
--- NOTE | 2022-02-15 13:28 | ED_ITS ---
HPI - Fall <Rosalba Korin Hernandez, [facility] - Last Filed: 02/15/22 15:34> General Chief Complaint: Fall Stated Complaint: GLF Time Seen by Provider: 02/15/22 13:22 Source: patient and EMS Mode of arrival: EMS History of Present Illness HPI Narrative: This is an 86-year-old male who lives at home in [place] with his , who has a history of Parkinson's disease and presents to the emergency department today after a ground level fall.? Patient has generalized weakness and balance issues due to his Parkinson's and his requests no mind-altering medications be given as this will be an increase in his fall risk.? Patient denies any headache, nausea, vomiting, neck pain or other injury.and presents to the emergency department via after a mechanical fall when he tripped with his right foot taking a step up 2 steps falling down onto his left side hurting his left hip and his left elbow. He denies taking any anticoagulants, states the pain on his left hip is on the lateral aspect and slightly lower down in his mid thigh. He can flex his hip without significant pain, denies pain in his pelvis when palpated, denies any incontinence or head injury when this happened. Denies any loss of consciousness, denies any numbness or tingling or sensation changes. Is able to flex and extend his elbow but complains of left elbow pain. Has not taken any pain medication today. Patient uses a walker to ambulate at baseline, he has not tried walking since his injury. Related Data Previous Rx's Medication Instructions Recorded tamsulosin 0.4 mg capsule (Flomax) 0.4 mg PO DAILY #10 caps 04/26/20 diclofenac sodium 1 % topical gel 2 g topical QID PRN shoulder pain 09/09/21 (Voltaren Arthritis Pain) #100 grams lidocaine 5 % topical patch 1 patch topical DAILY PRN shoulder 09/09/21 pain #15 ea hydrocodone 5 mg-acetaminophen 325 0.5 tab PO BEDTIME PRN pain #10 02/15/22 mg tablet tabs lidocaine 5 % topical patch 1 patch topical DAILY #15 ea 02/15/22 (Lidoderm) mupirocin 2 % topical ointment 1 applic topical BID sacral wound 02/15/22 #22 grams Allergies Allergy/AdvReac Type Severity Reaction Status Date / Time No Known Drug Allergies Allergy Verified 09/09/21 13:52 Review of Systems <PHIL Corona - Last Filed: 02/15/22 15:34> Review of Systems Narrative: Review of systems is negative for acute abnormalities unless otherwise noted in HPI Patient History <PHIL Corona - Last Filed: 02/15/22 15:34> Social History Smoking Status: Never smoker Smoking Status: Never smoker alcohol intake frequency: holidays/special occasions only Substance Use Type: does not use Exam <PHIL Corona - Last Filed: 02/15/22 15:34> Narrative Exam Narrative: Reviewed vitals signs and nursing notes. General: cooperative, comfortable, in no acute distress, well groomed HEENT: symmetrical facial expressions, moist mucous membranes Cardiovascular: regular rate and rhythm, no peripheral edema, warm extremities Respiratory: normal effort, able to speak in complete sentences, without wheezing, stridor, or abnormal breath sounds. No retractions or tachypnea. GI: abdomen soft, nontender to palpation, nondistended, without masses, rebound tenderness or exquisite tenderness with exam. MSK: moves all extremities, neurovascularly intact, no weakness, normal tone patient able to flex his left hip to 90? without significant pain, no tenderness over pelvis anterior and pressure tenderness over the lateral mid left upper thigh with no obvious deformity or ecchymosis. Patient's left DP and PT pulses are palpable, 1+, with a brisk cap refill. He has mild dependent edema at base line and wears a brief. Skin: brisk capillary refill, without pallor or erythema Neuro: normal speech and cognition, A&O x3, ambulatory, clear speech Psych: mental status is grossly normal, congruent mood, normal affect, pleasant and cooperative Initial Vital Signs Initial Vital Signs: Vital Signs Temperature 98.3 F 02/15/22 13:01 Pulse Rate 64 02/15/22 13:01 Respiratory Rate 18 02/15/22 13:01 Blood Pressure 125/84 02/15/22 13:01 Pulse Oximetry 98 02/15/22 13:01 Oxygen Delivery Method 02/15/22 13:01 <Daniel Loyola MD - Last Filed: 02/22/22 07:36> Initial Vital Signs Initial Vital Signs: Vital Signs Temperature 98.3 F 02/15/22 13:01 Pulse Rate 64 02/15/22 13:01 Respiratory Rate 18 02/15/22 13:01 Blood Pressure 125/84 02/15/22 13:01 Pulse Oximetry 98 02/15/22 13:01 Oxygen Delivery Method 02/15/22 13:01 Course <PHIL Corona - Last Filed: 02/15/22 15:34> Orders Ordered: Discontinued Medications Acetaminophen (Acetaminophen 325 Mg Tablet) 650 mg PO NOW ONE Stop: 02/15/22 13:28 Last Admin: 02/15/22 14:08 Dose: 650 mg Documented By: JOSE G Hydrocodone Bitart/Acetaminophen (Hydrocodone/Acet 5/325 Tablet) 0.5 tab PO NOW ONE Stop: 02/15/22 14:38 Last Admin: 02/15/22 14:57 Dose: 0.5 tab Documented By: JOSE G Lidocaine (Lidocaine Patch 1 Each Adh..Patch) 1 each TOP NOW ONE Stop: 02/15/22 13:28 Last Admin: 02/15/22 14:09 Dose: 1 each Documented By: JOSE G Lidocaine (Remove Lidocaine Patch) 1 each TOP BEDTIME LIDA Vital Signs Vital signs: Vital Signs - 8 hr 02/15/22 13:01 02/15/22 14:31 02/15/22 15:17 Temperature 98.3 F Pulse Rate 64 63 80 Respiratory Rate 18 16 18 Blood Pressure 125/84 172/84 H 142/78 H Pulse Oximetry 98 97 97 Oxygen Delivery Method Room Air Room Air Room Air <Daniel Loyola MD - Last Filed: 02/22/22 07:36> Orders Ordered: Discontinued Medications Acetaminophen (Acetaminophen 325 Mg Tablet) 650 mg PO NOW ONE Stop: 02/15/22 13:28 Last Admin: 02/15/22 14:08 Dose: 650 mg Documented By: JOSE G Hydrocodone Bitart/Acetaminophen (Hydrocodone/Acet 5/325 Tablet) 0.5 tab PO NOW ONE Stop: 02/15/22 14:38 Last Admin: 02/15/22 14:57 Dose: 0.5 tab Documented By: JOSE G Lidocaine (Lidocaine Patch 1 Each Adh..Patch) 1 each TOP NOW ONE Stop: 02/15/22 13:28 Last Admin: 02/15/22 14:09 Dose: 1 each Documented By: JOSE G Lidocaine (Remove Lidocaine Patch) 1 each TOP BEDTIME LIDA Vital Signs Vital signs: Vital Signs - 8 hr 02/15/22 13:01 02/15/22 14:31 02/15/22 15:17 Temperature 98.3 F Pulse Rate 64 63 80 Respiratory Rate 18 16 18 Blood Pressure 125/84 172/84 H 142/78 H Pulse Oximetry 98 97 97 Oxygen Delivery Method Room Air Room Air Room Air MDM - Fall <Rosalba PHIL Richard - Last Filed: 02/15/22 15:34> Lab Data Labs: Point of Care Testing Glucose POC 159 Imaging Data Extremity x-ray #1: Radiologist's Impression: PROCEDURE:? XR HIP W PEL IF DONE LT 2V ? INDICATIONS:? GLF ? TECHNIQUE:? AP pelvis with lateral view(s) of the left hip(s).? ? COMPARISON:? None. ? FINDINGS:? ? Bones:? No fractures or dislocations.? Pelvic ring appears intact.? No suspicious bony lesions.? Moderate bilateral hip DJD.? ? Soft tissues:? The visualized bowel gas pattern is normal.? No suspicious soft tissue calcifications.? ? ? IMPRESSION:? No fracture identified. ? If concern for occult fracture consider CT bony pelvis. ? ? ? Dictated by: Hang Goodman M.D. on 02/15/2022 at 14:16 ? ? Approved by: Hang Goodman M.D. on 02/15/2022 at 14:17 ? Extremity x-ray #2: Radiologist's Impression: PROCEDURE:? XR ELBOW LT MIN 3V ? INDICATIONS:? GLF ? TECHNIQUE:? 3 views of the elbow were acquired.? ? COMPARISON:? None. ? FINDINGS:? ? Bones:? No fractures or dislocations.? No suspicious bony lesions.? ? Soft tissues:? No elbow joint effusion.? No suspicious soft tissue calcifications.? ? ? IMPRESSION:? No acute abnormality of the left elbow ? ? Dictated by: Zuhair Bryson M.D. on 02/15/2022 at 14:38 ? ? Approved by: Zuhair Bryson M.D. on 02/15/2022 at 14:39 ? MDM Narrative Medical decision making narrative: This is a 86-year-old male who presents to the emergency department after he tripped and had a mechanical fall complaining lateral left hip pain, left elbow, and left shoulder pain where his rotator cuff pain is. He was given Tylenol, lidocaine patch in the emergency department with some improvement in his pain.? X-ray of his left elbow did not show any acute abnormalities, x-ray of his left hip and pelvis do not show any fractures either but show moderate bilateral hip degenerative joint disease. Patient states that he feels better and his pain as a 3 after Tylenol and lidocaine. He was given half a tab of hydrocodone and discussed at length with patient, his , when to take it and how to avoid w alking around after taking any medication that might alter his balance. Patient has a history of Parkinson's disease, he is ambulatory and has a steady gait when he got up from sitting to standing tolerated bearing weight without difficulty. Patient walks with a walker at baseline and use this for transfer. Recommend patient follow-up with her primary care provider if his pain is ongoing, discussed taking half a tab of hydrocodone as needed for breakthrough pain if difficulty sleeping. His will encourage hydration and meals, they understand to come back to the emergency department for any new or worsening symptoms. He was instructed to follow-up with his primary care provider if he has ongoing pain beyond 1 week.? We given a prescription for diclofenac topical gel and lidocaine patches.? Patient is appropriate and amenable to discharge home.? Vital signs are stable on repeat examination is unremarkable.? Patient has been informed of results.? Patient has been given strict return to ER precautions for any new or worsening symptoms.? Patient understands to follow up closely with outpatient providers as instructed.? Patient understands plan and agrees to discharge home.? All questions and concerns answered at this time. <Daniel Loyola MD - Last Filed: 02/22/22 07:36> Lab Data Labs: Point of Care Testing Glucose POC 159 Discharge Plan Departure Patient Disposition: Home Clinical Impression: History of Parkinson's disease Fall Qualifiers: Encounter type: initial encounter Qualified Code(s): W19.XXXA - Unspecified fall, initial encounter Contusion of left leg Qualifiers: Encounter type: initial encounter Qualified Code(s): S80.12XA - Contusion of left lower leg, initial encounter Wound of sacral region Qualifiers: Encounter type: initial encounter Qualified Code(s): S31.000A - Unspecified open wound of lower back and pelvis without penetration into retroperitoneum, initial encounter Elbow injury Qualifiers: Encounter type: initial encounter Laterality: left Qualified Code(s): S59.902A - Unspecified injury of left elbow, initial encounter Degenerative arthritis of hip Qualifiers: Osteoarthritis type: primary Laterality: bilateral Qualified Code(s): M16.0 - Bilateral primary osteoarthritis of hip Instructions: How to Prevent Falls, DI for Shoulder Pain Activity Restrictions/Additional Instructions: *You have been diagnosed with a fall due to tripping, left upper leg pain with a contusion and a left elbow injury without fracture. Please use Tylenol 650 mg every 6 hours as needed for pain, stay hydrated remember to eat food when taking medications. Keep an assistive walking device with you at all times and try to prevent falls with all of your energy. You can take half of a pain pill every 6-8 hours as needed if you do not have any imbalance, sedation, or altered mentation which could cause you to fall. Please take this only as you need to before bed and start only with a half of a tab. Please follow-up with your regular doctor if you are having any changes or medication needs. *What to do: *Please continue to take your regular medications as directed. [ X] New medication prescriptions sent to your pharmacy: [ DOD] [ ] New medication written as a paper prescription [ ] No new medications given *Please follow up with your primary care provider in 2-3 days, call for an appointment. Let them know you were seen in the Emergency Department and that we asked that you be seen for follow-up. We will electronically transmit a record of today's note if your PCP is in our system *If you do not have a primary care provider please contact [phone] to establish care with one of [facility] primary care providers. *Return to Emergency Department if you should have any new, worsening, or concerning symptoms, such as [fever greater than 101F, chills, worsening pain, persistent vomiting or other bothersome symptoms]. Prescriptions: New mupirocin 2 % ointment 1 applic topical BID Qty: 22 0RF hydrocodone-acetaminophen 5-325 mg tablet 0.5 tab PO BEDTIME PRN (Reason: pain) Qty: 10 0RF lidocaine [Lidoderm] 5 % adhesive patch,medicated 1 patch topical DAILY Qty: 15 0RF Rx Instructions: leave on most painful area for up to 12 hrs No Action tamsulosin [Flomax] 0.4 mg capsule 0.4 mg PO DAILY Qty: 10 0RF diclofenac sodium [Voltaren Arthritis Pain] 1 % gel 2 g topical QID PRN (Reason: shoulder pain) Qty: 100 0RF Rx Instructions: apply to single elbow, wrist or hand; for hand includes palm/fingers/back of hand lidocaine 5 % adhesive patch,medicated 1 patch topical DAILY PRN (Reason: shoulder pain) Qty: 15 0RF Rx Instructions: leave on most painful area for up to 12 hrs Referrals: Emilie Bo PA-C [Primary Care Provider] - Visit Report Forms: Patient Portal/API <Daniel Loyola MD - Last Filed: 02/22/22 07:36> Cosign ED Attending Cosolgaature Attestation: I was immediately available for consultation of this patient was seen and evaluated by the APC in the department.
[2022-02-15] MEDS: ACETAMINOPHEN 325 MG TABLET 650 MG PO (14:08)
[2022-02-15] MEDS: LIDOCAINE PATCH 1 EACH ADH..PATCH TOP (14:09)
[2022-02-15 14:31] VITALS: BP 172/84; PULSE 63; RESP 16; O2SAT 97
--- NOTE | 2022-02-15 14:34 | PC.NURSE ---
Attends saturated, removed, pericare performed, pt has skin breakdown on bilateral buttocks. Barrier cream applied. New attends placed, pt repositioned and warm blankets provided.
[2022-02-15] MEDS: HYDROCODONE/ACET 5/325 TABLET 0.5 TAB PO (14:57)
[2022-02-15 15:17] VITALS: BP 142/78; PULSE 80; RESP 18; O2SAT 97
--- NOTE | 2022-02-15 15:28 | PC.NURSE ---
Pt ambulated with stand by assist only with walker.
== END 2022-02-15 15:30 | disposition home or self-care (01) ==
PROVIDERS: Emergency Provider Nurse Practitioner Critical Care Medicine; Family Provider Physician Assistant Medical; PCP Physician Assistant Medical
DX: S80.12XA Contusion of left lower leg, initial encounter (principal); M25.552 Pain in left hip; M16.12 Unilateral primary osteoarthritis, left hip; S31.000A Unspecified open wound of lower back and pelvis without penetration into retroperitoneum, initial encounter; G20 Parkinson's disease; W19.XXXA Unspecified fall, initial encounter
CPT/HCPCS: 73080; 73502; 82962; 99283; 99284

== ENCOUNTER → 2023-04-08 14:45 | Outpatient (CLI) | payer MEDICARE, OTHER, SELFPAY ==
--- NOTE | 2023-04-08 | DI.ECHO.S_ITS ---
[place] +---------+ [facility] +---------+ : : [id number] : : : : [id number] : : : : Phone: [phone]+ Echocardiogram Report + + :Name: PRASHANTH GERMAIN Study Date: 04/08/2023 Height: 66 in : [facility] ReadingLocation: Weight: 180 lb : : Gender: Male BSA: 1.9 m2 : :: 1935 Age: 87 yrs BP: 128/62 mmHg: :Reason For Study: Cardiac Murmur : :Ordering Physician: MARKO, : :KEVYN Performed By: Isa Villegas : :Referring: KEVYN ZHU : + + Interpretation Summary The ejection fraction is estimated to be 60-65%. Diastolic parameters suggest probable normal left ventricular diastolic function and normal filling pressures. The right ventricle is normal in size and function. There is trace aortic regurgitation. Pulmonary artery pressures cannot be estimated because of the lack of a measurable TR jet velocity but the IVC suggests a CVP of around 3 mmHg. Procedure: A two-dimensional transthoracic echocardiogram with color flow and Doppler was performed. The study quality was technically adequate. There is no prior echocardiogram noted for this patient. The patient was in normal sinus rhythm during the exam. Left Ventricle: The left ventricle is normal in size and wall thickness. The ejection fraction is estimated to be 60-65%. Diastolic parameters suggest probable normal left ventricular diastolic function and normal filling pressures. Right Ventricle: The right ventricle is normal in size and function. Atria: The left atrial size is normal. Right atrial size is normal. There is no Doppler evidence for an interatrial shunt. Mitral Valve: The mitral valve is normal. There is mild mitral annular calcification. There is no mitral valve stenosis. There is trace mitral regurgitation. Aortic Valve: The aortic valve is trileaflet. The aortic valve is mildly calcified. The peak aortic velocity is 2.04 m/sec. The aortic valve mean gradient is 9 mmHg. There is no hemodynamically significant valvular aortic stenosis. There is trace aortic regurgitation. Tricuspid Valve: The tricuspid valve is normal. There is no tricuspid stenosis. There is trace tricuspid regurgitation. Pulmonary artery pressures cannot be estimated because of the lack of a measurable TR jet velocity but the IVC suggests a CVP of around 3 mmHg. Pulmonic Valve: The pulmonic valve is not well visualized. There is no pulmonic valvular stenosis. There is trace pulmonic regurgitation. Great Vessels: The aortic root is normal size. The ascending aorta is at the upper limits of normal in size. The pulmonary artery is normal size. The IVC is of normal diameter and collapses greater than 50% with a sniff. This suggests a low right atrial pressure of 3 mm Hg. Pericardium/ Pleura There is no pericardial effusion. There is no pleural effusion. MMode/2D Measurements & Calculations LVIDd: 4.5 cm LVOT diam: 2.2 cm LVIDs: 2.4 cm Ao root diam: 3.2 cm FS: 46.7 % asc Aorta Diam: 3.7 cm IVSd: 0.80 cm LVPWd: 1.1 cm LV cannon. diameter/BSA (cm/m^2): 2.4 LV sys. diameter/BSA (cm/m^2): 1.3 LA A2 area: 19.2 cm2 RA long axis: 4.5 cm LA A4 area: 12.4 cm2 RA area: 8.7 cm2 LA length (vol): 5.1 cm RA vol: 14.4 ml LA vol: 39.5 ml RA : 7.5 ml/m2 LA vol index: 20.7 ml/m2 RVD1 (basal): 2.3 cm LVLs ap4: 6.3 cm LVLd ap2: 7.2 cm LVLs ap2: 6.1 cm Doppler Measurements & Calculations Ao V2 max: 198.4 cm/sec LVOT Max Rajan: 123.5 cm/sec Ao V2 mean: 130.0 cm/sec LV V1 max P.1 mmHg Ao max P.0 mmHg LV V1 VTI: 29.8 cm Ao mean P.2 mmHg SAHIL(I,D): 2.7 cm2 Ao V2 VTI: 42.1 cm SAHIL(V,D): 2.4 cm2 sev ratio: 0.71 SAHIL indexed to BSA (cm^2/m^2): 1.4 MV E max rajan: 85.9 cm/sec PA V2 max: 118.0 cm/sec MV A max rajan: 99.9 cm/sec PA V2 mean: 83.6 cm/sec MV E/A: 0.86 PA mean P.0 mmHg Med Peak E' Rajan: 5.3 cm/sec PA pr(Accel): 52.9 mmHg E/E' med: 16.1 Lat Peak E' Rajan: 10.7 cm/sec E/E' lat: 8.0 E/e' average: 12.1 MV dec time: 0.22 sec SV(LVOT): 113.4 ml AV VR_phl: 0.63 SAHIL(VTI)/BSA_phl: 1.4 Reading Physician:05:37 PM
== END ==
PROVIDERS: Family Provider Physician Assistant Medical; PCP Physician Assistant Medical; Referring Provider Physician Assistant Medical; Visit Provider Physician Assistant Medical
DX: R01.1 Cardiac murmur, unspecified (principal); I35.1 Nonrheumatic aortic (valve) insufficiency
CPT/HCPCS: 93306